=== PATIENT | female | born 1980 | race Caucasian/White ===

== ENCOUNTER 2020-07-20 12:28 | Emergency (ER) | payer SELFPAY ==
[~2020-07-20] VITALS: Ht 157 cm; Wt 68.4 kg
--- NOTE | 2020-07-20 12:53 | ED Cardiac General ---
History of Present Illness General Chief Complaint: Cardiac/General Problems Stated Complaint: RAPID HR History of Present Illness Date Seen by Provider: Jul 20, 2020 Time Seen by Provider: 12:38 Initial Comments This is a well-appearing 39-year-old female presented to the ER with complaints of chest pain and rapid heart rate. States she was referred by her primary care provider, Dr. Silverio for cardiac workup. Reports history of thyroid dysfunction and type 1 diabetes. States her PCP has referred her to endocrinology for ultrasound and further workup regarding her Thyroid. Reports sternal chest discomfort rated 6 out of 10 and localized to mid chest. Describes as a racing sensation that comes and goes. Denies associated symptoms such as diaphoresis, nausea, vomiting. Denies fevers, chills, cough, shortness of breath, abdominal pain. Last menstrual period last month. States she is due any day. Does not use contraceptives. Denies COVID exposures or ill contacts. Allergies and Home Medications Allergies Coded Allergies: Latex, Natural Rubber (Verified Allergy, Unknown, 07/20/20) Uncoded Allergies: CONTROL (Adverse Reaction, Unknown, 07/20/20) Home Medications Propranolol HCl 20 Mg Tablet, 20 MG PO BID Prescribed by: LORNA LINK on 07/20/20 1529 Patient Home Medication List Home Medication List Reviewed: Yes Review of Systems Review of Systems Constitutional: see HPI Past Oiflehf-Ageknj-Aldtsk Hx Patient Social History Recent Foreign Travel: No Contact w/Someone Who Travel: No Physical Exam Vital Signs Vital Signs - First Documented 07/20/20 12:46 Temp 36.7 Pulse 100 Resp 18 B/P (MAP) 156/90 (112) Pulse Ox 99 Capillary Refill : Height, Weight, BMI Height: '" Weight: lbs. oz. kg; BMI Method: General Appearance: No Apparent Distress, WD/WN HEENT: PERRL/EOMI, Pharynx Normal, Moist Mucous Membranes Neck: Full Range of Motion, Normal Inspection, Non Tender, Supple Respiratory: Lungs Clear, Normal Breath Sounds, No Accessory Muscle Use Cardiovascular: Regular Rate, Rhythm, No Edema, Normal Peripheral Pulses; No Extra Beats Gastrointestinal: Normal Bowel Sounds, Non Tender, Soft Extremity: Normal Capillary Refill, Normal Inspection, Normal Range of Motion, No Pedal Edema Neurologic/Psychiatric: Alert, Oriented x3, No Motor/Sensory Deficits, Normal Mood/Affect Skin: Normal Color, Warm/Dry Progress/Results/Core Measures Results/Orders Lab Results Laboratory Tests Test 07/20/20 12:15 07/20/20 13:15 Range/Units Free Thyroxine 2.02 H 0.70-1.48 NG/DL White Blood Count 5.7 4.3-11.0 10^3/uL Red Blood Count 5.12 H 3.80-5.11 10^6/uL Hemoglobin 14.5 11.5-16.0 g/dL Hematocrit 43 35-52 % Mean Corpuscular Volume 85 80-99 fL Mean Corpuscular Hemoglobin 28 25-34 pg Mean Corpuscular Hemoglobin Concent 33 32-36 g/dL Red Cell Distribution Width 12.1 10.0-14.5 % Platelet Count 250 130-400 10^3/uL Mean Platelet Volume 9.8 9.0-12.2 fL Immature Granulocyte % (Auto) 0 % Neutrophils (%) (Auto) 59 42-75 % Lymphocytes (%) (Auto) 30 12-44 % Monocytes (%) (Auto) 8 0-12 % Eosinophils (%) (Auto) 3 0-10 % Basophils (%) (Auto) 0 0-10 % Neutrophils # (Auto) 3.3 1.8-7.8 10^3/uL Lymphocytes # (Auto) 1.7 1.0-4.0 10^3/uL Monocytes # (Auto) 0.5 0.0-1.0 10^3/uL Eosinophils # (Auto) 0.2 0.0-0.3 10^3/uL Basophils # (Auto) 0.0 0.0-0.1 10^3/uL Immature Granulocyte # (Auto) 0.0 0.0-0.1 10^3/uL Prothrombin Time 13.3 12.2-14.7 SEC INR Comment 1.0 0.8-1.4 Activated Partial Thromboplast Time 26 24-35 SEC Sodium Level 138 135-145 MMOL/L Potassium Level 4.0 3.6-5.0 MMOL/L Chloride Level 105 98-107 MMOL/L Carbon Dioxide Level 24 21-32 MMOL/L Anion Gap 9 5-14 MMOL/L Blood Urea Nitrogen 12 7-18 MG/DL Creatinine 0.67 0.60-1.30 MG/DL Estimat Glomerular Filtration Rate > 60 BUN/Creatinine Ratio 18 Glucose Level 97 70-105 MG/DL Calcium Level 9.4 8.5-10.1 MG/DL Corrected Calcium 9.3 8.5-10.1 MG/DL Magnesium Level 1.8 1.6-2.4 MG/DL Total Bilirubin 1.0 0.1-1.0 MG/DL Aspartate Amino Transf (AST/SGOT) 26 5-34 U/L Alanine Aminotransferase (ALT/SGPT) 30 0-55 U/L Alkaline Phosphatase 73 40-136 U/L Troponin I < 0.028 <0.028 NG/ML Total Protein 7.2 6.4-8.2 GM/DL Albumin 4.1 3.2-4.5 GM/DL Thyroid Stimulating Hormone (TSH) 0.00 L 0.35-4.94 UIU/ML Serum Test, Qualitative NEGATIVE NEGATIVE My Orders Orders - LORNA LINK APRN Cbc With Automated Diff (07/20/20 12:45) Comprehensive Metabolic Panel (07/20/20 12:45) Hcg,Qualitative Serum (07/20/20 12:45) Ekg Tracing (07/20/20 12:45) Magnesium (07/20/20 13:00) Chest 1 View, Ap/Pa Only (07/20/20 13:00) Protime With Inr (07/20/20 13:00) Partial Thromboplastin Time (07/20/20 13:00) Monitor-Rhythm Ecg Trace Only (07/20/20 13:00) Troponin I (07/20/20 13:00) Thyroid Stimulating Hormone (07/20/20 13:47) Free T4 (Free Thyroxine) (07/20/20 15:02) Vital Signs/I&O 07/20/20 07/20/20 12:46 15:30 Temp 36.7 36.7 Pulse 100 95 Resp 18 18 B/P (MAP) 156/90 (112) 145/89 (112) Pulse Ox 99 99 Progress Progress Note : Progress Note RN called Dr. Silverio office, states patient called into the office reporting complaints of fast heartbeat, chest discomfort, and low TSH; she was redirected to the ER for work-up. On arrival her heart rate was in the 90s. States her highest heart rate was 102 while at home per her pulse oximeter. At this time she is denying any chest pain, stating it feels like fluttering in her chest. Her most recent TSH was 0, and she was referred to endocrinology for further work-up. Labs and imaging reviewed which are reassuring. Repeat TSH is 0. Heart rate 90s and sinus rhythm with no evidence of elevated temperature, confusion, agitation, or extreme high blood pressure which is reassuring that she is not experiencing thyroid storm. Discussed case with Dr. Castillo, recommendations described below. Reviewed discharge plan of care with her and she is agreeable with plan. Initial ECG Impression Date: Jul 20, 2020 Initial ECG Impression Time: 12:40 Initial ECG Rate: 87 Initial ECG Rhythm: Normal Sinus Initial ECG Intervals: Normal Initial ECG Impression: Normal Diagnostic Imaging Diagonstic Imaging: Xray Plain Films/CT/US/NM/MRI: chest Comments NAME: JOSE LUIS NELSON [facility] REC#: [id number] PT STATUS: DEP ER : 1980 PHYSICIAN: LORNA LINK PSYCHIATRIC NURSING AIDE ADMIT DATE: 07/20/20/ER Signed Date of Exam:07/20/20 CHEST 1 VIEW, AP/PA ONLY INDICATION: Abnormal thyroid labs and chest pain. TIME OF EXAM: 1:57 PM. COMPARISON: No prior studies are available for comparison. FINDINGS: The heart size is normal. The pulmonary vascularity is unremarkable. The lungs are clear. No infiltrate, effusion, or pneumothorax is detected. IMPRESSION: No acute cardiopulmonary process is detected. Dictated by: Dictated on workstation # [id number] Dict: 07/20/20 1421 Trans: 07/20/20 1546 [id number] Interpreted by: LAWRENCE AMADOR MD Electronically signed by: LAWRENCE AMADOR MD 07/20/20 1546 Departure Communication (Admissions) Time/Spoke to Consulting Phy: 14:[address] Castillo, recommeded starting low dose Propranolol, adding Free T4 to labs, and having close follow up with Dr. Silverio next week. Impression Primary Impression: Tachycardia Additional Impressions: Low TSH level Palpitations Disposition: HOME, SELF-CARE Condition: Stable/Unchanged Departure-Patient Inst. Decision time for Depature: 15:09 Referrals: RONEY SILVERIO MD (PCP/Family) Primary Care Physician Patient Instructions: Hyperthyroidism (Overactive Thyroid), Tachycardia (DC) Add. Discharge Instructions: 1. Discharge home 2. Follow up with Dr. Silverio on SaturdayJune 24 at 8:45 in the morning. 3. Take Propranolol as directed. Monitor your heart rate. Do not take if your pulse is less than 60. 4. Return for any new or concerning symptoms. All discharge instructions reviewed with patient and/or family. Voiced understanding. Scripts Propranolol HCl (Propranolol HCl) 20 Mg Tablet 20 MG PO BID for 30 Days, #60 TAB 0 Refills Prov: LORNA LINK PSYCHIATRIC NURSING AIDE 07/20/20 Copy Copies To 1: RONEY SILVERIO MD, STORMY D PSYCHIATRIC NURSING AIDE Jul 20, 2020 12:53
[2020-07-20 13:30] LABS: BASOPHILS % (AUTO) 0 % (0-10); EOSINOPHILS # (AUTO) 0.2 10^3/uL (0.0-0.3); EOSINOPHILS % (AUTO) 3 % (0-10); HEMATOCRIT 43 % (35-52); HEMOGLOBIN 14.5 g/dL (11.5-16.0); LYMPHOCYTES # (AUTO) 1.7 10^3/uL (1.0-4.0); LYMPHOCYTES % (AUTO) 30 % (12-44); MEAN CORPUSCULAR HEMOGLOBIN 28 pg (25-34); MEAN CORPUSCULAR HGB CONC 33 g/dL (32-36); MEAN CORPUSCULAR VOLUME 85 fL (80-99); MEAN PLATELET VOLUME 9.8 fL (9.0-12.2); MONOCYTES # (AUTO) 0.5 10^3/uL (0.0-1.0); MONOCYTES % (AUTO) 8 % (0-12); NEUTROPHILS # (AUTO) 3.3 10^3/uL (1.8-7.8); NEUTROPHILS % (AUTO) 59 % (42-75); PLATELET COUNT 250 10^3/uL (130-400); WHITE BLOOD COUNT 5.7 10^3/uL (4.3-11.0)
[2020-07-20 13:40] LABS: ALBUMIN 4.1 GM/DL (3.2-4.5); CHLORIDE 105 MMOL/L (98-107); SODIUM 138 MMOL/L (135-145)
[2020-07-20 13:41] LABS: CALCIUM 9.4 MG/DL (8.5-10.1)
[2020-07-20 13:42] LABS: GLUCOSE 97 MG/DL (70-105); TOTAL PROTEIN 7.2 GM/DL (6.4-8.2)
[2020-07-20 13:43] LABS: CARBON DIOXIDE 24 MMOL/L (21-32); PROTHROMBIN TIME PATIENT 13.3 SEC (12.2-14.7)
[2020-07-20 13:46] LABS: ALKALINE PHOSPHATASE 73 U/L (40-136); CREATININE SERUM 0.67 MG/DL (0.60-1.30); GFR ESTIMATED > 60
[2020-07-20 13:47] LABS: BUN/CREATININE RATIO 18
[2020-07-20 13:49] LABS: ALANINE AMINOTRANSFERASE 30 U/L (0-55)
--- NOTE | 2020-07-20 14:27 | Diagnostic Imaging Report ---
INDICATION: Abnormal thyroid labs and chest pain. TIME OF EXAM: 1:57 PM. COMPARISON: No prior studies are available for comparison. FINDINGS: The heart size is normal. The pulmonary vascularity is unremarkable. The lungs are clear. No infiltrate, effusion, or pneumothorax is detected. IMPRESSION: No acute cardiopulmonary process is detected. Dictated by: Dictated on workstation # [id number]
[2020-07-20] MEDS ORDERED: PROP20TA5 PO (15:29)
[2020-07-20 15:30] VITALS: BP 145/89
== END 2020-07-20 15:31 | disposition home or self-care (01) ==
LOC: EDUNIT# 12:28 → ER 12:31
DX: R00.0 Tachycardia, unspecified (principal); R94.6 Abnormal results of thyroid function studies; R00.2 Palpitations; Z91.040 Latex allergy status
CPT/HCPCS: 36415; 71045; 80053; 83735; 84439; 84443; 84484; 84703; 85025; 85610; 85730; 93041

== ENCOUNTER 2020-10-23 13:04 | Emergency (ER) | payer BC ==
[~2020-10-23] VITALS: Ht 165 cm; Wt 64.0 kg
[~2020-10-23 13:04] MED LIST: PROP20TA5 PO
[2020-10-23] MEDS ORDERED: INSU100I14 (13:22)
[2020-10-23] MEDS ORDERED: OXYC5TAB (13:22)
[2020-10-23] MEDS ORDERED: PROP10TA8 (13:22)
[2020-10-23] MEDS ORDERED: LISI-729 (13:22)
[2020-10-23] MEDS ORDERED: METH5TAB5 (13:22)
[2020-10-23] MEDS ORDERED: FEXO-46 (13:22)
[2020-10-23] MEDS ORDERED: INSU100I29 (13:22)
[2020-10-23] MEDS ORDERED: fentaNYL INJ 100 MCG/2 ML AMP IVP ONE (13:30)
[2020-10-23] MEDS ORDERED: ONDANSETRON 4 MG/2 ML (SDV) Z0FRAN IVP ONE (13:30)
[2020-10-23] MEDS ORDERED: NS IV 1000 ML 1,000 ML IV SCH ×2 (13:30→14:30)
[2020-10-23 13:32] LABS: BASOPHILS % (AUTO) 0 % (0-10); EOSINOPHILS % (AUTO) 0 % (0-10); HEMATOCRIT 50 % (35-52); HEMOGLOBIN 16.2 g/dL (11.5-16.0); LYMPHOCYTES # (AUTO) 2.2 10^3/uL (1.0-4.0); LYMPHOCYTES % (AUTO) 20 % (12-44); MEAN CORPUSCULAR HEMOGLOBIN 28 pg (25-34); MEAN CORPUSCULAR HGB CONC 32 g/dL (32-36); MEAN CORPUSCULAR VOLUME 87 fL (80-99); MEAN PLATELET VOLUME 9.4 fL (9.0-12.2); MONOCYTES # (AUTO) 0.6 10^3/uL (0.0-1.0); MONOCYTES % (AUTO) 6 % (0-12); NEUTROPHILS # (AUTO) 7.9 10^3/uL (1.8-7.8); NEUTROPHILS % (AUTO) 73 % (42-75); PLATELET COUNT 347 10^3/uL (130-400); WHITE BLOOD COUNT 10.8 10^3/uL (4.3-11.0)
--- NOTE | 2020-10-23 13:32 | ED GI ---
General Chief Complaint: Abdominal/GI Problems Stated Complaint: POST THYROID SURGERY/ N/V Nursing Triage Note: ARRIVED VIA WC TO ROOM 07 WITH COMPLAINTS OF N/V X2 DAYS. STATES SHE HAD A THYROIDECTOMY ON SATURDAY AT [facility]. Sepsis Screen: No Definite Risk Source of Information: Patient, Spouse Exam Limitations: No Limitations History of Present Illness Date Seen by Provider: Oct 23, 2020 Time Seen by Provider: 13:00 Initial Comments Patient presents ER by private conveyance from home with her and chief complaint for the past 2 days of nausea and vomiting inability to keep anything down. Her fasting blood sugar was 206 today. She has a history of type 1 diab etes and had a thyroidectomy by Dr. Blas 6 days ago on Saturday. She called him and he sent her some Zofran which she has been using for 5 times a day with no relief of symptoms. No dysuria or diarrhea but she has had significant constipation able to pass a bowel movement yesterday that was hard. No fevers or chills cough shortness of air or sick contacts. Allergies and Home Medications Allergies Coded Allergies: Latex, Natural Rubber (Verified Allergy, Unknown, 07/20/20) Uncoded Allergies: CONTROL (Adverse Reaction, Unknown, 07/20/20) Home Medications Propranolol HCl 20 Mg Tablet, 20 MG PO BID Prescribed by: LORNA LINK on 07/20/20 1529 Patient Home Medication List Home Medication List Reviewed: Yes Review of Systems Review of Systems Constitutional: No chills, No diaphoresis EENTM: No Blurred Vision, No Double Vision Respiratory: Denies Cough, Denies Shortness of Air Cardiovascular: Denies Chest Pain, Denies Lightheadedness Gastrointestinal: Denies Abdominal Pain, Denies Constipated, Denies Diarrhea, Denies Nausea Genitourinary: Denies Burning, Denies Discharge Musculoskeletal: No back pain, No joint pain Skin: No pruritus, No rash Psychiatric/Neurological: Denies Anxiety, Denies Depressed All Other Systems Reviewed Negative Unless Noted: Yes Past Svuczyd-Smkquh-Gyrvti Hx Patient Social History Alcohol Use: Rarely Uses Smoking Status: Former Smoker Former Smoker, Quit: Jul 05, 2010 Recent Infectious Disease Expo: No Recent Hopitalizations: No Seasonal Allergies Seasonal Allergies: No Past Medical History Surgeries: Yes (CERVICAL CA REMOVAL) Gallbladder Respiratory: No Cardiac: No Neurological: No Genitourinary: No Gastrointestinal: No Musculoskeletal: No Endocrine: Yes Diabetes, Insulin dep, Hypothyroidsim HEENT: No Cancer: No Psychosocial: No Blood Disorders: No Physical Exam Vital Signs Vital Signs - First Documented 10/23/20 13:05 Temp 36.3 Pulse 77 Resp 16 B/P (MAP) 150/91 (110) Pulse Ox 97 O2 Delivery Room Air Capillary Refill : Less Than 3 Seconds Height/Weight/BMI Height: '" Weight: lbs. oz. kg; 23.00 BMI Method: General Appearance: WD/WN, mild distress HEENT: PERRL/EOMI; No pharynx normal Neck: full range of motion (Oral mucosa is dry lips are cracked), supple, other (Anterior to the thyroid is a longitudinal, clean dry intact healing scar without significant erythema fluctuance or induration. Mildly tender to palpation) Respiratory: lungs clear, normal breath sounds, no respiratory distress, no accessory muscle use Cardiovascular: normal peripheral pulses, regular rate, rhythm, no edema Peripheral Pulses: 2+ Radial Pulses (R), 2+ Radial Pulses (L) Gastrointestinal: normal bowel sounds, soft, no organomegaly, tenderness (Midepigastric mild tenderness to palpation) Extremities: non-tender, normal inspection, no pedal edema, normal capillary refill Neurologic/Psychiatric: alert, normal mood/affect, oriented x 3 Skin: normal color, warm/dry Progress/Results/Core Measures Results/Orders Lab Results Laboratory Tests Test 10/23/20 13:18 10/23/20 14:10 Range/Units White Blood Count 10.8 4.3-11.0 10^3/uL Red Blood Count 5.77 H 3.80-5.11 10^6/uL Hemoglobin 16.2 H 11.5-16.0 g/dL Hematocrit 50 35-52 % Mean Corpuscular Volume 87 80-99 fL Mean Corpuscular Hemoglobin 28 25-34 pg Mean Corpuscular Hemoglobin Concent 32 32-36 g/dL Red Cell Distribution Width 13.0 10.0-14.5 % Platelet Count 347 130-400 10^3/uL Mean Platelet Volume 9.4 9.0-12.2 fL Immature Granulocyte % (Auto) 0 % Neutrophils (%) (Auto) 73 42-75 % Lymphocytes (%) (Auto) 20 12-44 % Monocytes (%) (Auto) 6 0-12 % Eosinophils (%) (Auto) 0 0-10 % Basophils (%) (Auto) 0 0-10 % Neutrophils # (Auto) 7.9 H 1.8-7.8 10^3/uL Lymphocytes # (Auto) 2.2 1.0-4.0 10^3/uL Monocytes # (Auto) 0.6 0.0-1.0 10^3/uL Eosinophils # (Auto) 0.0 0.0-0.3 10^3/uL Basophils # (Auto) 0.0 0.0-0.1 10^3/uL Immature Granulocyte # (Auto) 0.0 0.0-0.1 10^3/uL Sodium Level 132 L 135-145 MMOL/L Potassium Level 5.1 H 3.6-5.0 MMOL/L Chloride Level 102 98-107 MMOL/L Carbon Dioxide Level 16 L 21-32 MMOL/L Anion Gap 14 5-14 MMOL/L Blood Urea Nitrogen 10 7-18 MG/DL Creatinine 0.79 0.60-1.30 MG/DL Estimat Glomerular Filtration Rate > 60 BUN/Creatinine Ratio 13 Glucose Level 201 H 70-105 MG/DL Calcium Level 9.4 8.5-10.1 MG/DL Corrected Calcium 9.2 8.5-10.1 MG/DL Total Bilirubin 1.3 H 0.1-1.0 MG/DL Aspartate Amino Transf (AST/SGOT) 32 5-34 U/L Alanine Aminotransferase (ALT/SGPT) 60 H 0-55 U/L Alkaline Phosphatase 126 40-136 U/L C-Reactive Protein High Sensitivity 0.37 0.00-0.50 MG/DL Total Protein 8.5 H 6.4-8.2 GM/DL Albumin 4.2 3.2-4.5 GM/DL Urine Color YELLOW Urine Clarity SL CLOUDY Urine pH 6.0 5-9 Urine Specific [place] 1.020 1.016-1.022 Urine Protein NEGATIVE NEGATIVE Urine Glucose (UA) NEGATIVE NEGATIVE Urine Ketones 1+ H NEGATIVE Urine Nitrite NEGATIVE NEGATIVE Urine Bilirubin NEGATIVE NEGATIVE Urine Urobilinogen 0.2 < = 1.0 MG/DL Urine Leukocyte Esterase 1+ H NEGATIVE Urine RBC (Auto) NEGATIVE NEGATIVE Urine RBC NONE /HPF Urine WBC 2-5 /HPF Urine Squamous Epithelial Cells 5-10 /HPF Urine Crystals NONE /LPF Urine Bacteria TRACE /HPF Urine Casts NONE /LPF Urine Mucus NEGATIVE /LPF Urine Culture Indicated NO Urine Test NEGATIVE NEGATIVE My Orders Orders - RUDOLPH GOMEZ Ed Iv/Invasive Line Start (10/23/20 13:20) Ns Iv 1000 Ml (Sodium Chloride 0.9%) (10/23/20 13:30) Ondansetron Injection (Zofran Injectio (10/23/20 13:30) Cbc With Automated Diff (10/23/20 13:20) Comprehensive Metabolic Panel (10/23/20 13:20) Hs C Reactive Protein (10/23/20 13:20) Ua Culture If Indicated (10/23/20 13:20) Fentanyl Inj (Sublimaze Injection) (10/23/20 13:30) Promethazine Injection (Phenergan Injec (10/23/20 14:30) Ed Iv/Invasive Line Start (10/23/20 14:26) Ns Iv 1000 Ml (Sodium Chloride 0.9%) (10/23/20 14:30) Hcg,Qualitative Urine (10/23/20 14:34) Iohexol Injection (Omnipaque 350 Mg/Ml 1 (10/23/20 15:00) Received Contrast (Hold Metformin- Contr (10/23/20 15:00) Sodium Chloride Flush (Catheter Flush Sy (10/23/20 15:00) Ns (Ivpb) (Sodium Chloride 0.9% Ivpb Bag (10/23/20 15:00) Ct Abdomen/Pelvis W (10/23/20 15:04) Medications Given in ED Current Medications Medications Dose Ordered Sig/[place] Route Start Time Stop Time Status Last Admin Dose Admin Fentanyl Citrate 25 mcg ONCE ONCE IVP 10/23/20 13:30 10/23/20 13:31 DC 10/23/20 13:31 25 MCG Iohexol 100 ml ONCE ONCE IV 10/23/20 15:00 10/23/20 15:01 DC 10/23/20 15:02 62 ML Ondansetron HCl 8 mg ONCE ONCE IVP 10/23/20 13:30 10/23/20 13:31 DC 10/23/20 13:31 8 MG Promethazine HCl 25 mg ONCE ONCE IVP 10/23/20 14:30 10/23/20 14:31 DC 10/23/20 14:25 25 MG Sodium Chloride 10 ml NEEDED PRN IV 10/23/20 15:00 10/23/20 15:03 10 ML Sodium Chloride 100 ml ONCE ONCE IV 10/23/20 15:00 10/23/20 15:01 DC 10/23/20 15:03 80 ML Vital Signs/I&O 10/23/20 13:05 Temp 36.3 Pulse 77 Resp 16 B/P (MAP) 150/91 (110) Pulse Ox 97 O2 Delivery Room Air Blood Pressure Mean: 110 Progress Progress Note #1: Time: 13:37 Progress Note Type I diabetic unable to tolerate her medications with nausea vomiting after surgery. Will check urine and blood looking for infection, DKA, or just postoperative nausea vomiting. 8 mg Zofran IV and a liter of normal saline. Progress Note #2: Time: 14:28 Progress Note The patient does not have a significant gap however she does have the beginnings of some ketones. Certainly we can turn her around before she goes into full DKA. She has been using laxatives for her constipation and this may be the crux of her problems. She is already had her gallbladder out however because of her elevated bilirubin and, epigastric abdominal pain and persistent nausea were going to obtain a CT of her abdomen pelvis and give her another liter of fluids. Phenergan 25 mg IV x1. Progress Note #3: Time: 15:38 Progress Note The patient is feeling better. She did have to take off her glucometer for the CT scan so we will check her blood sugar right before she leaves. She has about 700 cc of fluids left ago. Were going to provide her some Phenergan in addition to the Zofran she has and have her follow-up tomorrow with her surgeon at her scheduled appointment. We did offer an observation stay but she says she thinks she would be more comfortable at home. Diagnostic Imaging Diagonstic Imaging: CT Plain Films/CT/US/NM/MRI: abdomen, pelvis Comments NAME: JOSE LUIS NELSON [facility] REC#: [id number] PT STATUS: REG ER : 1980 PHYSICIAN: RUDOLPH GOMEZ MD ADMIT DATE: 10/23/20/ER Draft Date of Exam:10/23/20 CT ABDOMEN/PELVIS W EXAMINATION: CT abdomen and pelvis with intravenous contrast. TECHNIQUE: Multiple contiguous axial images were obtained through the abdomen and pelvis after the uneventful administration of intravenous contrast. All CT scans use one or more of the following dose optimizing techniques: automated exposure control, MA and/or KvP adjustment based on patient size and exam type or iterative reconstruction. HISTORY: Epigastric pain, elevated bilirubin. COMPARISON: None available. FINDINGS: Limited views of the lower thorax are unremarkable. The liver is normal without focal lesion. Gallbladder is surgically absent. There is no biliary ductal dilation. Pancreas is normal. Spleen is normal. Adrenal glands are normal. The kidneys are normal. There is no hydronephrosis. Urinary bladder is normal. Uterus and ovaries are normal for age with physiologic cysts in the right ovary and a physiologic amount of free pelvic fluid. Visualized bowel is normal in caliber without obstruction or inflammation. Focus of high attenuation in the duodenum is likely ingested material. No free fluid or air. No abdominal or pelvic lymphadenopathy. Aorta is normal in caliber without aneurysm. There are no suspicious osseus lesions. IMPRESSION: Absent gallbladder, otherwise normal exam. Dictated on workstation # [id number] Dict: 10/23/20 1513 Trans: 10/23/20 1518 [facility] [id number] Interpreted by: AMBERLY SELBY MD Electronically signed by: Reviewed: Reviewed by Me Departure Impression Primary Impression: Gastroenteritis Additional Impressions: Constipation Qualified Codes: K59.00 - Constipation, unspecified Dehydration Status post thyroid surgery Diabetes mellitus Qualified Codes: E10.69 - Type 1 diabetes mellitus with other specified complication Disposition: 01 HOME, SELF-CARE Condition: Improved Departure-Patient Inst. Decision time for Depature: 15:39 Referrals: RONEY SILVERIO MD (PCP/Family) Primary Care Physician Patient Instructions: Dehydration, Adult ED, Viral Gastroenteritis, Adult (DC) Add. Discharge Instructions: Make sure you are drinking plenty of fluids and sugar-free sports drinks. Zofran as directed. Phenergan 1 tablet every 6 hours as needed for breakthrough nausea and vomiting. All discharge instructions reviewed with patient and/or family. Voiced understanding. Scripts Promethazine HCl (Promethazine Tablet) 25 Mg Tablet 25 MG PO Q6H PRN for NAUSEA/VOMITING, #20 TAB 0 Refills Prov: RUDOLPH GOMEZ 10/23/20 RUDOLPH GOMEZ Oct 23, 2020 13:32
[2020-10-23 13:47] LABS: ALANINE AMINOTRANSFERASE 60 U/L (0-55); ALBUMIN 4.2 GM/DL (3.2-4.5); ALKALINE PHOSPHATASE 126 U/L (40-136); BILIRUBIN,TOTAL 1.3 MG/DL (0.1-1.0); BUN/CREATININE RATIO 13; CALCIUM 9.4 MG/DL (8.5-10.1); CARBON DIOXIDE 16 MMOL/L (21-32); CHLORIDE 102 MMOL/L (98-107); CREATININE SERUM 0.79 MG/DL (0.60-1.30); GFR ESTIMATED > 60; GLUCOSE 201 MG/DL (70-105); POTASSIUM 5.1 MMOL/L (3.6-5.0); SODIUM 132 MMOL/L (135-145); TOTAL PROTEIN 8.5 GM/DL (6.4-8.2)
[2020-10-23 14:20] LABS: BILIRUBIN,URINE NEGATIVE (NEGATIVE); CLARITY,URINE SL CLOUDY; COLOR,URINE YELLOW; GLUCOSE, URINE (UA) NEGATIVE (NEGATIVE); KETONES,URINE 1+ (NEGATIVE); LEUKOCYTE ESTERASE ,URINE 1+ (NEGATIVE); NITRITE,URINE NEGATIVE (NEGATIVE); PROTEIN,URINE NEGATIVE (NEGATIVE)
[2020-10-23 14:27] LABS: BACTERIA,URINE TRACE /HPF
[2020-10-23] MEDS ORDERED: PROMETHAZINE INJ 25 MG/ML (PHENERGAN) AMP IVP ONE (14:30)
[2020-10-23] MEDS ORDERED: HOLD METFORMIN - RECEIVED CONTRAST 20 ML VIAL IV SCH (15:00)
[2020-10-23] MEDS ORDERED: IOHEXOL 350 MG/ML 100 ML (OMNIPAQUE 350) VIAL IV ONE (15:00)
[2020-10-23] MEDS ORDERED: NS 100 ML (IVPB) BAG IV ONE (15:00)
[2020-10-23] MEDS ORDERED: CATHETER FLUSH 10 ML SYR IV PRN (15:00)
--- NOTE | 2020-10-23 15:19 | Diagnostic Imaging Report ---
EXAMINATION: CT abdomen and pelvis with intravenous contrast. TECHNIQUE: Multiple contiguous axial images were obtained through the abdomen and pelvis after the uneventful administration of intravenous contrast. All CT scans use one or more of the following dose optimizing techniques: automated exposure control, MA and/or KvP adjustment based on patient size and exam type or iterative reconstruction. HISTORY: Epigastric pain, elevated bilirubin. COMPARISON: None available. FINDINGS: Limited views of the lower thorax are unremarkable. The liver is normal without focal lesion. Gallbladder is surgically absent. There is no biliary ductal dilation. Pancreas is normal. Spleen is normal. Adrenal glands are normal. The kidneys are normal. There is no hydronephrosis. Urinary bladder is normal. Uterus and ovaries are normal for age with physiologic cysts in the right ovary and a physiologic amount of free pelvic fluid. Visualized bowel is normal in caliber without obstruction or inflammation. Focus of high attenuation in the duodenum is likely ingested material. No free fluid or air. No abdominal or pelvic lymphadenopathy. Aorta is normal in caliber without aneurysm. There are no suspicious osseus lesions. IMPRESSION: Absent gallbladder, otherwise normal exam. Dictated by: Dictated on workstation # [id number]
[2020-10-23] MEDS ORDERED: PROM25TA14 PO (15:41)
[2020-10-23] MEDS ORDERED: RX-PHENERGAN 25 MG SUPP PPK#3 PR STA (15:41)
[2020-10-23 16:12] VITALS: BP 130/82
== END 2020-10-23 16:12 | disposition home or self-care (01) ==
LOC: EDUNIT# 13:04 → ER 13:06
DX: E10.69 Type 1 diabetes mellitus with other specified complication (principal); K52.9 Noninfective gastroenteritis and colitis, unspecified; E89.0 Postprocedural hypothyroidism; Z87.891 Personal history of nicotine dependence; Z98.890 Other specified postprocedural states; Z79.4 Long term (current) use of insulin; Z91.040 Latex allergy status; Z88.8 Allergy status to other drugs, medicaments and biological substances; Z32.02 Encounter for pregnancy test, result negative
CPT/HCPCS: 36415; 74177; 80053; 81000; 84703; 85025; 86141

== ENCOUNTER → 2021-09-04 | Outpatient (CLI) | payer BC, MEDICAID ==
[~2021-09-04] MED LIST changes: +FEXO-46; +INSU100I14; +INSU100I29; +LISI5TAB20; +METH5TAB95; +OXYC5TAB; +PROM25TA14 PO; +PROP10TA8
--- NOTE | 2021-09-04 09:50 | Diagnostic Imaging Report ---
PROCEDURE: US Non-ob pelvis comp/trans. TECHNIQUE: Multiple realtime grayscale images were obtained of the pelvis in various projections endovaginally. Transabdominal imaging was also performed. INDICATION: 7 weeks with vaginal bleeding. FINDINGS: Uterus measures 9.6 x 6.7 x 4.3 cm. The endometrial stripe is 3 mm. No evidence of retained products of conception. There is a myometrial mass present in the mid uterus measuring 2.1 cm. There is a cyst with some debris present in the cervix measuring 1.8 cm. Right ovary measures 5 x 4 x 4.4 cm. There is a 4 cm cyst on the right ovary. Left ovary measures 2.3 x 1.7 x 1.3 cm. There is normal blood flow to both ovaries. There is a trace of free fluid in the pelvis. IMPRESSION: 1. Myometrial masses consistent with uterine fibroids. Largest measuring just over 2 cm. 2. There is a cyst in the cervix as well as a cyst in the right ovary. Dictated by: Dictated on workstation # [id number]
== END ==
LOC: RAD 08:15
PROVIDERS: ATTEND Obstetrics & Gynecology
DX: O72.2 Delayed and secondary postpartum hemorrhage (principal); O99.893 Other specified diseases and conditions complicating puerperium; N83.201 Unspecified ovarian cyst, right side; N94.89 Other specified conditions associated with female genital organs and menstrual cycle; N85.8 Other specified noninflammatory disorders of uterus
CPT/HCPCS: 76830; 76856

== ENCOUNTER 2021-09-19 05:31 | Outpatient (CLI) | payer BC, MEDICAID ==
[~2021-09-19] VITALS: Ht 157.5 cm; Wt 70.0 kg
[~2021-09-19 05:31] MED LIST changes: -INSU100I14; +INSU100I14 SQ; -INSU100I29; +INSU100I29 SQ
[2021-09-19] MEDS ORDERED: INSULIN PUMP (13:35)
[2021-09-19] MEDS ORDERED: LABE200T7 PO (13:35)
[2021-09-19] MEDS ORDERED: LEVO150C4 PO (14:05)
[2021-09-19] MEDS ORDERED: PNV1TABL9 PO (14:05)
[2021-09-19] MEDS ORDERED: CALC600T91 PO (14:05)
== END 2021-09-19 14:09 | disposition home or self-care (01) ==
LOC: PREOP 05:31
PROVIDERS: ATTEND Obstetrics & Gynecology
DX: Z01.818 Encounter for other preprocedural examination (principal)

== ENCOUNTER 2021-09-26 06:31 | Day surgery (SDC) | payer MEDICAID ==
[~2021-09-26] VITALS: Ht 157.5 cm; Wt 66.4 kg
[2021-09-26] VITALS (8 sets, daily range): BP systolic 95–116; BP diastolic 50–72
[~2021-09-26 06:31] MED LIST changes: +CALC600T91 PO; +INSULIN PUMP; +LABE200T7 PO; +LEVO150C4 PO; +PNV1TABL9 PO
[2021-09-26] MEDS ORDERED: ceFAZolin 2 GM IV Premixed 50 ML IV ONE (06:45)
[2021-09-26] MEDS ORDERED: LACTATED RINGERS 1,000 ML IV PRN (06:45)
[2021-09-26 06:48] LABS: CLARITY,URINE CLEAR; COLOR,URINE YELLOW; GLUCOSE, URINE (UA) NEGATIVE (NEGATIVE); KETONES,URINE TRACE (NEGATIVE); LEUKOCYTE ESTERASE ,URINE NEGATIVE (NEGATIVE); NITRITE,URINE NEGATIVE (NEGATIVE); PH,URINE 5.5 (5-9); PROTEIN,URINE 1+ (NEGATIVE)
[2021-09-26] MEDS ORDERED: LIDOCAINE/EPI 1%-1:200,000 (XYLOCAINE) 30 ML VIAL ONE (07:04)
[2021-09-26 07:12] LABS: BASOPHILS % (AUTO) 0 % (0-10); EOSINOPHILS # (AUTO) 0.2 10^3/uL (0.0-0.3); EOSINOPHILS % (AUTO) 5 % (0-10); HEMATOCRIT 48 % (35-52); HEMOGLOBIN 15.6 g/dL (11.5-16.0); LYMPHOCYTES # (AUTO) 1.5 10^3/uL (1.0-4.0); LYMPHOCYTES % (AUTO) 28 % (12-44); MEAN CORPUSCULAR HEMOGLOBIN 30 pg (25-34); MEAN CORPUSCULAR HGB CONC 33 g/dL (32-36); MEAN CORPUSCULAR VOLUME 93 fL (80-99); MEAN PLATELET VOLUME 9.4 fL (9.0-12.2); MONOCYTES # (AUTO) 0.4 10^3/uL (0.0-1.0); MONOCYTES % (AUTO) 8 % (0-12); NEUTROPHILS # (AUTO) 3.2 10^3/uL (1.8-7.8); NEUTROPHILS % (AUTO) 59 % (42-75); PLATELET COUNT 284 10^3/uL (130-400); WHITE BLOOD COUNT 5.4 10^3/uL (4.3-11.0)
[2021-09-26] MEDS ORDERED: ONDANSETRON 4 MG/2 ML (SDV) Z0FRAN ONE (07:14)
[2021-09-26] MEDS ORDERED: fentaNYL INJ 100 MCG/2 ML AMP ONE (07:14)
[2021-09-26] MEDS ORDERED: ROCURONIUM 10 MG/ML 5 ML SYRINGE IV ONE (07:14)
[2021-09-26] MEDS ORDERED: proPOfol 200 MG/20 ML (DIPRIVAN) VIAL IV ONE (07:14)
[2021-09-26] MEDS ORDERED: MIDAZOLAM 2 MG/2 ML (VERSED) VIAL ONE (07:14)
[2021-09-26 07:17] LABS: BILIRUBIN,URINE 1+ (NEGATIVE); RBC,URINE RARE /HPF
[2021-09-26 07:18] LABS: BACTERIA,URINE FEW /HPF
[2021-09-26 07:23] LABS: ALBUMIN 4.6 GM/DL (3.2-4.5); CHLORIDE 106 MMOL/L (98-107); POTASSIUM 5.2 MMOL/L (3.6-5.0); SODIUM 138 MMOL/L (135-145)
[2021-09-26 07:24] LABS: CALCIUM 9.7 MG/DL (8.5-10.1)
[2021-09-26 07:25] LABS: GLUCOSE 84 MG/DL (70-105)
[2021-09-26 07:26] LABS: CARBON DIOXIDE 19 MMOL/L (21-32)
[2021-09-26 07:27] LABS: BILIRUBIN,TOTAL 1.2 MG/DL (0.1-1.0)
[2021-09-26 07:29] LABS: ALKALINE PHOSPHATASE 73 U/L (40-136); CREATININE SERUM 0.88 MG/DL (0.60-1.30); GFR ESTIMATED 85
[2021-09-26 07:30] LABS: BUN/CREATININE RATIO 18
[2021-09-26 07:32] LABS: ALANINE AMINOTRANSFERASE 25 U/L (0-55)
--- NOTE | 2021-09-26 07:45 | Progress Note-Pre Operative ---
Pre-Operative Progress Note H&P Reviewed The H&P was reviewed, patient examined and no changes noted. Date Seen by Provider: Sep 26, 2021 Time Seen by Provider: 07:30 Date H&P Reviewed: Sep 26, 2021 Time H&P Reviewed: 07:30 Pre-Operative Diagnosis: fibroids, menorrhagia, uterine prolapse, ovarian cyst FROY SALDANA DO Sep 26, 2021 07:45
[2021-09-26] MEDS ORDERED: SEVOFLURANE (ULTANE) 15 ML INHAL SOLN ONE (09:32)
[2021-09-26] MEDS ORDERED: GLYCOPYRROLATE 0.2 MG/ML (ROBINUL) 2 ML VIAL ONE (09:33)
[2021-09-26] MEDS ORDERED: NEOSTIGMINE 3 MG/3 ML VIAL ONE (09:33)
--- NOTE | 2021-09-26 09:38 | Operative Report ---
Operative Report Date of Procedure/Surgery Sep 26, 2021 Surgeon (s) FROY SALDANA DO Bell Spinner (s): Tej Vazquez, MS IV Post-Operative Diagnosis adenomyosis uterine fibroids uterine prolapse endomeriosis absent left ovary/ovarian remnant Procedure Performed RaTH, bilateral salpingectomy, removal left ovarian remnant, resection/fulgaration endometriosis Description of Procedure Anesthesia Type: General Estimated blood loss (mL): 100 Specimen(s) collected/removed uterus, tubes, left ovarian remnant endometriosis/peritoneal biopsy Description of the Procedure After informed consent was obtained, patient was taken into the operating room where general anesthetic was found to be adequate. She was prepped and draped in the usual sterile fashion in the dorsal lithotomy position. A Nam catheter was placed. A speculum was placed in the vagina. The cervix was visualized and the anterior lip was grasped with a sharp toothed tenaculum. The uterus was sounded and depth was approximately 8 centimeters. I placed the Carol device (8 cm) and a 3.0 cm collar was advanced over the cervix. I inserted the Carol without difficulty, inflating the balloon and securing it around the fornix of the cervix. The collar was then secured with sutures at 12 o'clock. Attention was then turned to the patient's abdomen. The skin was injected with 0.25% Marcaine. A supraumbilical incision was made about 8 mm in length. A Veress needle was inserted and I confirmed intraabdominal placement with a drop in pressure and the saline drop test. The opening pressure was 8 mmHg. I then insufflated the abdomen to a maximum of 15 mmHg with warmed CO2 gas. I placed an additional 8 mm trocar approximately 15 cm lateral to the umbilicus on the left. The second robotic port was placed about 15 cm lateral to the right of the umbilical placement. This was an 8 mm trocar. These were placed under direct visualization of the laparoscope. 0.25% Marcaine was injected prior to placement of all trocars. It was determined that the procedure could be completed robotically. When all placements were confirmed, the patient was placed in steep Trendelenburg allowing adequate visualization and the robot was brought in for docking. The docking was accomplished without difficulty. I then took over the command of the robot utilizing the synchroseal and monopolar aiyana. Initially, I took down the adhesions of the bowel to the right side of the abdomen. There was a loop of bowel loosely adherent to the abdomen and it was taken down in a blunt and sharp fashion without cautery. It was now noted that there was an adhesion of the left tube to the back of the uterus. There does not appear to be ovarian tissue present, and if there is, there is a small ovarian remnant. This does not appear to be embryologically absent, but I am unsure of the etiology of this appearance. However, it is so densely adherent that it will be removed as the tube is removed. It makes a loop and band that needs to be taken down. I dissected this off of the posterior uterus in a blunt and sharp fashion with the aiyana and cautery. Then, I proceeded with a bilateral salpingectomy. I incised the mesosalpinx bilaterally with the monopolar aiyana. Then I grasped the round ligaments bilaterally and cauterized with bipolar cautery and then cut with my aiyana. I then grasped the uterine ovarian ligaments separately bilaterally and cauterized and cut with the synchroseal. I then moved my dissection to the posterior leaves of the broad ligament. I dissected the posterior leaves of the broad ligament off the uterine arteries skeletonizing them bilaterally. I then took a second clamp with the synchroseal and with the aiyana, transected the vessels away from the lateral aspect to the cervical stroma. There were very extensive vesicouterine adhesions from the previous sections. I dissected the anterior peritoneum off the lower uterine segment. I continually pushed the bladder back and I took excessively great care and I was eventually able to dissect the vesicouterine peritoneum off the lower uterine segment. I then dissected in a V fashion towards the midline between the uterosacral ligaments. This allowed me to skeletonize the uterine vessels bilaterally. The balloon on the CAROL was insufflated. This allowed me to see the CAROL circumferentially. I then performed a colpotomy anteriorly and then amputate with cervix away from the vaginal fornix. I then continued the colpotomy circumferentially. At this point, the uterus was removed through the vagina. The assistant elementary teacher left a sponge in the vagina to keep the pneumoperitoneum. Endometriosis was fulgerated off of the ovaries bilaterally. I then irrigated the pelvis and there was hemostasis. I then began closure of the vaginal cuff. I closed the apices of the vaginal cuff with 2-0 Vicryl V lock sutures with a colposuspension through the uterosacral ligaments. This suspended the apices of the vaginal cuff. I extended this to the midline from both sides and overlapped the V lock sutures in the midline. Excellent closure is noted and hemostasis is achieved. All the needles were removed from the patient's abdomen. Now, the robotic instruments were removed and the robot was docked back to laparoscopy. The pelvis was irrigated. There was no active bleeding noted. Bilateral ureters were seen the entire time during the surgery and were peristalsing. There was no excessive bleeding noted. The trocars were removed under direct visualization. The laparoscopic sites were visualized and found to be hemostatic. The trocar sites were injected with 0.25% Marcaine. The skin incisions were closed with 4-0 Monocryl in a subcuticular fashion and then with Dermabond. Op sites were placed over the incision sites. The instruments were removed from the vagina and I noted there were no abrasions. Sponge, lap, needle and instrument counts correct times two. Patient was awakened and taken to recovery in a stable condition. Findings of the Procedure enlarged boggy uterus. adhesion of bowel to right pelvic side wall endometriosis culdesac, round ligaments ovarian fossa right left ovary absent or with ovarian remnant stuck to the left ovarian fossa, US ligament Allergies and Home Medications Allergies Coded Allergies: Latex, Natural Rubber (Verified Allergy, Unknown, 07/20/20) lovastatin (Unverified Allergy, Unknown, 09/19/21) RAISED LIVER ENZYMES, HEART PALPITATIONS Uncoded Allergies: CONTROL (Adverse Reaction, Unknown, 07/20/20) Patient Home Medication List Home Medication List Reviewed: Yes Acetaminophen (Acetaminophen) 500 Mg Tablet, 1,000 MG PO Q8HR Prescribed by: FROY SALDANA on 09/26/21 1025 Calcium Carbonate (Calcium) 600 Mg Tablet, 1,200 MG PO, (Reported) Entered as Reported by: STEPHANIA STEVENS on 09/19/21 1405 Last Action: Reviewed Docusate Sodium (Docusate Sodium) 100 Mg Capsule, 100 MG PO BID Prescribed by: FROY SALDANA on 09/26/21 1025 Fexofenadine HCl (Fexofenadine HCl) 180 Mg Tablet, (Reported) Entered as Reported by: ОЛЕГ BLACKMAN on 10/23/20 1322 Last Action: Reviewed Ibuprofen (Ibu) 600 Mg Tablet, 600 MG PO Q6HR Prescribed by: FROY SALDANA on 09/26/21 102 Insulin Aspart (Novolog Flexpen) 300 Units/3 Ml Solution, 0 SQ PRN PRN for INSULIN PUMP MALFUNCTION, (Reported) Entered as Reported by: ОЛЕГ BLACKMAN on 10/23/201321 Last Action: Reviewed Insulin Detemir (Levemir Flextouch) 100 Unit/1 Ml Insuln.pen, 0 SQ PRN PRN for INSULIN PUMP MALFUNCTION, (Reported) Entered as Reported by: ОЛЕГ BLACKMAN on 10/23/201321 Last Action: Reviewed Labetalol HCl (Labetalol HCl) 200 Mg Tablet, 200 MG PO BID, (Reported) Entered as Reported by: STEPHANIA STEVENS on 09/19/211334 Last Action: Reviewed Levothyroxine Sodium (Levothyroxine) 150 Mcg Capsule, 150 MCG PO DAILY, (Reported) Entered as Reported by: STEPHANIA STEVENS on 09/19/211404 Last Action: Reviewed Pantoprazole Sodium (Pantoprazole Sodium) 40 Mg Tablet.dr, 40 MG PO DAILY Prescribed by: FROY SALDANA on 09/26/21 1025 Pnv Cmb#21/Iron/Folic Acid ( Complete Caplet) 1 Each Tablet, 1 EACH PO, (Reported) Entered as Reported by: STEPHANIA STEVENS on 09/19/211404 Last Action: Reviewed Simethicone (Mi-Acid) 80 Mg Tab.chew, 80 MG PO Q2H PRN for gas Prescribed by: FROY SALDANA on 09/26/21 102 Sucralfate (Sucralfate) 1 Gm Tablet, 1 GM PO ACHS Prescribed by: FROY SALDANA on 09/26/21 1025 [Insulin Pump] , (Reported) Entered as Reported by: STEPHANIA STEVENS on 09/19/211334 Last Action: Reviewed FROY SALDANA DO Sep 26, 2021 09:38
[2021-09-26] MEDS ORDERED: SIMETHICONE 80 MG (MYLICON) CHEW PO PRN (09:45)
[2021-09-26] MEDS ORDERED: PATIENT MAY USE OWN MEDS, ALL MC SCH (09:45)
[2021-09-26] MEDS ORDERED: NALOXONE 0.4 MG/ML 1 ML (NARCAN) VIAL IV PRN (09:45)
[2021-09-26] MEDS ORDERED: HYDROmorphone 2 MG/ML VIAL (DILAUDID) IV ONE (09:45)
[2021-09-26] MEDS ORDERED: morphine INJ 4 MG/ML 1 ML (VIAL/SYRINGE) IV PRN (09:45)
[2021-09-26] MEDS ORDERED: CHLORASEPTIC LOZENGE MM PRN (09:45)
[2021-09-26] MEDS ORDERED: morphine INJ 10 MG/ML 1ML (SYR OR VIAL) IVP ONE (09:45)
[2021-09-26] MEDS ORDERED: LACTATED RINGERS 1,000 ML IV SCH (09:45)
[2021-09-26] MEDS ORDERED: MEPERIDINE (DEMEROL) INJ 50 MG/ML IVP ONE (09:45)
[2021-09-26] MEDS ORDERED: ONDANSETRON 4 MG (ZOFRAN) ORAL DISSOLVE TAB PO PRN (09:45)
[2021-09-26] MEDS ORDERED: ONDANSETRON 4 MG/2 ML (SDV) Z0FRAN IVP PRN (09:45)
--- NOTE | 2021-09-26 09:47 | Anesthesia-General Post-Op ---
General Patient Condition Mental Status/LOC: Same as Preop Cardiovascular: Satisfactory Nausea/Vomiting: Absent Respiratory: Satisfactory Pain: Controlled Complications: Absent Post Op Complications Complications None Follow Up Care/Instructions Patient Instructions None needed. Anesthesia/Patient Condition Patient Condition Patient is doing well, no complaints, stable vital signs, no apparent adverse anesthesia problems. No complications reported per nursing. HILDA VELAZCO CRNA Sep 26, 2021 09:47
[2021-09-26] MEDS ORDERED: morphine INJ 10 MG/ML 1ML (SYR OR VIAL) ONE (09:59)
[2021-09-26] MEDS ORDERED: KETOROLAC 30 MG/ML VIAL ONE (09:59)
[2021-09-26] MEDS ORDERED: RT-ALBUTEROL SULF 2.5 MG/3 ML PRE-MIX VIAL INH SCH (10:00)
[2021-09-26] MEDS: KETOROLAC 30 MG/ML VIAL IV SCH ×2 (10:01→15:08)
[2021-09-26] MEDS ORDERED: ACET-93 PO (10:25)
[2021-09-26] MEDS ORDERED: SUCR1TAB PO (10:25)
[2021-09-26] MEDS ORDERED: PANT40TA52 PO (10:25)
[2021-09-26] MEDS ORDERED: SMT80CT PO (10:25)
[2021-09-26] MEDS ORDERED: IBUP-844 PO (10:25)
[2021-09-26] MEDS ORDERED: DOCU100C37 PO (10:25)
--- NOTE | 2021-09-26 10:27 | Discharge Inst-Women's Service ---
Discharge Inst-Women's Serv Depart Medication/Instructions New, Converted or Re-Newed RX: Transmitted to Pharmacy (oxycodone previously transmitted from the office) Final Diagnosis uterine fibroids adenomyosis endometriosis Problems Reviewed?: Yes Consults/Follow Up Additional Follow Up: Yes (1 week for incision check and 8-12 weeks for pelvic exam) Activity Activity: Activity as Tolerated (no lifting over 25 lbs) Driving Instructions: No Driving for 1 Week NO SMOKING: NO SMOKING Nothing Inside Vagina: No Douching, No [place] (nothing in vagina until cleared by physician (8-12 weeks)), No Tampons Diet Discharge Diet: No Restrictions Symptoms to Report to : Swelling Increased, Bleeding Excessive, Pain Increased, Fever Over 101 Degrees F, Vaginal Bleeding Increase, Cramps in Feet or Legs, Vaginal Discharge Foul For Any Problems or Questions: Contact Your Physician Skin/Wound Care Infection Signs and Symptoms: Increased Redness, Foul Odor of Wound, Increased Drainage, Skin Itchy or Has a Rash, Increased Swelling, Temperature Above 101 F Operative Area Clean and Dry: Keep Incision Clean/Dry, You May Remove Bandage (in 72 hours) Stitches/Александр/Dermabond: Dermabond Bathing Instructions: FROY Coyne DO Sep 26, 2021 10:27
[2021-09-26] MEDS ORDERED: SUCRALFATE 1 GM (CARAFATE) TAB PO SCH (11:00)
[2021-09-26] MEDS ORDERED: PANTOPRAZOLE 40 MG (PROTONIX) VIAL IV NR (11:30)
[2021-09-26] MEDS ORDERED: ACETAMINOPHEN 500 MG TAB (TYLENOL) PO SCH (14:00)
[2021-09-26] MEDS ORDERED: DOCUSATE SODIUM 100 MG (COLACE) CAP PO SCH (21:00)
[2021-09-26] MEDS ORDERED: traZODone 50 MG (DESYREL) TAB PO SCH (21:00)
[2021-09-27] MEDS ORDERED: IBUPROFEN 600 MG (MOTRIN) TAB PO SCH (12:00)
[2021-09-27] MEDS ORDERED: PANTOPRAZOLE 40 MG (PROTONIX) TAB PO SCH (12:00)
== END 2021-09-26 15:30 | disposition home or self-care (01) ==
LOC: SDC 06:31 → WS 10:40 → SDC 15:30
PROVIDERS: ATTEND Obstetrics & Gynecology
DX: D25.1 Intramural leiomyoma of uterus (principal); N80.0 Endometriosis of uterus; N81.4 Uterovaginal prolapse, unspecified; N81.2 Incomplete uterovaginal prolapse; N83.201 Unspecified ovarian cyst, right side; Z87.891 Personal history of nicotine dependence; Z79.899 Other long term (current) drug therapy
CPT/HCPCS: 36415; 80053; 81000; 84703; 85025; 86850; 86900; 86901; 87081; 87088; 88307; 94664